=== PATIENT | female | born 1960 | race Hispanic/Latino ===

== ENCOUNTER 2020-03-11 16:34 | Emergency (ER) | payer MEDICARE ==
[~2020-03-11] VITALS: Ht 157.5 cm; Wt 79.4 kg
[2020-03-11] MEDS ORDERED: KETOROLAC TROMETHAMINE 30 MG/ML VIAL IM STA (17:08)
[2020-03-11] MEDS ORDERED: DEXAMETHASONE 4 MG TAB PO STA (18:01)
[2020-03-11] MEDS ORDERED: ULTRAM50 MG PO (18:42)
[2020-03-11 19:50] VITALS: BP 127/82
== END 2020-03-11 19:57 | disposition home or self-care (01) ==
LOC: ER 16:50
DX: M25.512 Pain in left shoulder (principal); E03.9 Hypothyroidism, unspecified; Z87.01 Personal history of pneumonia (recurrent)
CPT/HCPCS: 73030; 73080; 93005; 99283; J1885; J8540